=== PATIENT | male | born 2000 ===

== ENCOUNTER 2020-08-30 11:29 | Emergency (ER) | payer MEDICAID, SELFPAY ==
--- NOTE | ~2020-08-30 | CT_ITS ---
EXAMINATION: CT ORBIT WITH CONTRAST CLINICAL INFORMATION: Left prosthetic eye. Surrounding swelling. Evaluate for cellulitis. COMPARISON: No relevant prior imaging. TECHNIQUE: Placement Coordinator images were obtained. CT imaging of the orbits was performed after the intravenous administration of 85 mL Omnipaque 350. Data was reformatted into multiplanar images at the acquisition workstation. This CT examination was performed using dose optimization techniques as appropriate, variously including the following: *Automated exposure control *Adjustment of mA and/or kV according to patient size (this includes techniques or standardized protocols for targeted exams where dose is matched to indication/reason for exam; i.e. 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 There is ill-defined thickening and stranding surrounding the left inferior oblique muscle. The medial rectus muscle is also abnormal in that the tendinous connection on the prosthesis is thinned or disrupted with corresponding contraction and thickening of the muscle belly. This could represent a chronic finding. No discrete drainable fluid collection. There is an old healed fracture of the left lamina papyracea with a small amount of extraconal fat herniating into the left ethmoid air cells. The right globe is intact. Paranasal sinuses are well aerated. There is narrowing or occlusion of the left sphenoid sinus ostium. The remainder of the major paranasal sinus drainage pathways are patent. Limited visualization of the intracranial anatomy reveals no abnormal finding. Specifically there is no midline shift or hydrocephalus. CT/CT orbit BI w con IMPRESSION: There is nonspecific stranding within the post septal compartment surrounding the inferior aspect of the left globe prosthesis with edema and/or inflammatory changes surrounding the left inferior oblique muscle. Findings therefore may represent a manifestation of cellulitis in the appropriate clinical setting. No discrete drainable fluid collection.
[2020-08-30 11:32] VITALS: BP 125/71; PULSE 86; RESP 16; TEMP 36.5; O2SAT 96; BMI 43.9
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
[2020-08-30 12:18] VITALS: BP 124/71; PULSE 81; RESP 16; O2SAT 98
[2020-08-30 12:34] LABS: MANUAL DIFF FLAG NO
[2020-08-30 12:36] LABS: Basophils Absolute Auto 0.1 X10*3/uL (0.0-0.2); Basophils Percent Auto 0.6 % (0-2); Eosinophils Absolute Auto 0.3 X10*3/uL (0.0-0.4); Eosinophils Percent Auto 3.1 % (0-4); Hematocrit 46.1 % (42-52); Hemoglobin 15.3 g/dl (14.0-18.0); Imm Gran Abs Auto 0.02 X10*3/uL (0.00-0.03); Imm Gran Pct Auto 0.2 % (0.0-0.4); Lymphocytes Absolute Auto 3.6 X10*3/uL (1.2-4.9); Lymphocytes Percent Auto 41.5 % (20-40); Mean Corpuscular HGB Conc 33.2 g/dl (31.0-36.0); Mean Corpuscular Hemoglobin 27.7 pg (27.0-33.0); Mean Corpuscular Volume 83.4 fL (80-98); Mean Platelet Volume 8.8 fL (9.4-12.4); Monocytes Absolute Auto 0.5 X10*3/uL (0.1-1.2); Monocytes Percent Auto 6.3 % (2-11); Neutrophils Absolute Auto 4.2 X10*3/uL (2.0-8.3); Neutrophils Percent Auto 48.3 % (45-73); Platelet Count 291 X10*3/uL (160-400); Red Blood Count 5.53 X10*6/uL (4.60-5.80); Red Cell Distribution Width 12.5 % (11.0-16.0); White Blood Count 8.6 X10*3/uL (4.8-10.8)
[2020-08-30 12:54] LABS: Anion Gap 12 (12-20); Blood Urea Nitrogen 13 mg/dL (9-16); Calcium 9.6 mg/dL (8.4-10.2); Carbon Dioxide 25 mmol/L (22-29); Chloride 105 mmol/L (96-108); Creatinine Clr Calc Pharmacy 237.9; Estimated Glomerular Filt Rate > 60; Glucose Random 105 mg/dL (60-115); Potassium 4.2 mmol/L (3.3-5.1); Sodium 138 mmol/L (135-145)
[2020-08-30 13:12] LABS: Lactic Acid 1.3 mmol/L (0.5-2.0)
[2020-08-30] MEDS: iohexoL 350 MG/ML 100 ML INFUS..BTL IV (13:33)
== END 2020-08-30 15:21 | disposition home or self-care (01) ==
PROVIDERS: Nurse Practitioner Family; Emergency Provider Emergency Medicine
DX: L03.213 Periorbital cellulitis (principal); R42 Dizziness and giddiness
CPT/HCPCS: 36415; 70481; 80048; 83605; 85025; 87040; 99284; Q9967